=== PATIENT | female | born 1965 | race Caucasian/White ===

== ENCOUNTER 2017-01-27 15:44 | Emergency (ER) | payer OTHER ==
[2017-01-27 15:58] VITALS: BP 107/66; PULSE 70; RESP 18; TEMP 99.5; O2SAT 99
--- NOTE | 2017-01-27 16:09 | ED PDOC ---
Lower Extremity Pain/Injury Time Seen by Provider: 01/27/17 16:05 Chief Complaint (Nursing): Lower Extremity Problem/Injury Chief Complaint (Provider): Left thigh pain History Per: Patient History/Exam Limitations: no limitations Onset/Duration Of Symptoms: Days Current Symptoms Are (Timing): Still Present Additional Complaint(s): Kaleb is a 51 y/o female [facility] who presents to the ED complaining of pain to the left posterior thigh. She states that last Javon (01/23/17) while pulling a stretcher in the hospital, she felt a sharp pain and pull in the left upper posterior thigh. Patient reports having pain since then. She has been taking Motrin and Aleve with minimal pain relief. Her last dose of Aleve was at 4AM. Patient was seen at [facility] and was told to come to ED for further eval. PMD: none Past Medical History Reviewed: Historical Data, Nursing Documentation, Vital Signs Vital Signs: Last Vital Signs Temp 99.5 F 01/27/17 15:55 Pulse 70 01/27/17 15:55 Resp 18 01/27/17 15:55 BP 107/66 01/27/17 15:55 Pulse Ox 99 01/27/17 15:55 - Medical History PMH: No Chronic Diseases - Surgical History Surgical History: (x 2) - Family History Family History: States: No Known Family Hx - Living Arrangements Living Arrangements: With Family - Social History Current smoker - smoking cessation education provided: No Alcohol: None Drugs: Denies - Home Medications Home Medications: Ambulatory Orders Medication Instructions Recorded Cyclobenzaprine [Cyclobenzaprine 10 mg PO TID PRN #20 tab 01/27/17 HCl] Lidocaine 5% [Lidoderm] 1 ea TD DAILY #30 patch 01/27/17 Naproxen [Naprosyn] 500 mg PO BID #20 tab 01/27/17 traMADol [Ultram] 50 mg PO TID PRN #15 tab 01/27/17 - Allergies Allergies/Adverse Reactions: Allergies Allergy/AdvReac Type Severity Reaction Status Date / Time amoxicillin Allergy DIARRHEA Verified 01/27/17 15:55 Wells Criteria for PE - Wells Criteria for Pulmonary Embolism Clinical Signs and Symptoms of DVT: No P.E is #1 Diagnosis, or Equally Likely: No Heart Rate >100: No Immobilization at least 3 days;Surgery previous 4 weeks: No Previous, objectively diagnosed PE or DVT: No Hemoptysis: No Malignancy w/treatment within 6 months, or palliative: No Total Score: 0 Review of Systems ROS Statement: Except As Marked, All Systems Reviewed And Found Negative Musculoskeletal: Positive for: Leg Pain (left posterior thigh pain) Neurological: Negative for: Weakness, Numbness Physical Exam - Reviewed Nursing Documentation Reviewed: Yes Vital Signs Reviewed: Yes - Physical Exam Appears: Positive for: Non-toxic, No Acute Distress Head Exam: Positive for: ATRAUMATIC, NORMAL INSPECTION, NORMOCEPHALIC Skin: Positive for: Normal Color. Negative for: Rash Eye Exam: Positive for: Normal appearance Extremity: Positive for: Tenderness (and muscular spasm to the left hamstring region), Other (full rom left leg with pain). Negative for: Deformity Neurologic/Psych: Positive for: Alert, Oriented, Gait (antalgic due to left leg pain) - ECG O2 Sat by Pulse Oximetry: 99 (RA) Pulse Ox Interpretation: Normal Medical Decision Making Medical Decision Making: Time: 16:30 Clinical Impression: Left hamstring strain Toradol IM offered but this was declined by patient. Patient is medically stable for discharge. Given prescriptions for Naproxen, Flexeril, Tramadol, and Lidoderm patches for pain management. Counseling was provided and all questions were answered regarding diagnosis and need for follow up with employee health. There is agreement to discharge plan. Return if symptoms persist or worsen. Scribe Attestation: Documented by Elizabet Posada, acting as a scribe for Valencia Price PA-C Provider Scribe Attestation: All medical record entries made by the Scribe were at my direction and personally dictated by me. I have reviewed the chart and agree that the record accurately reflects my personal performance of the history, physical exam, medical decision making, and the department course for this patient. I have also personally directed, reviewed, and agree with the discharge instructions and disposition. Disposition - Clinical Impression Clinical Impression: Hamstring muscle strain - Patient ED Disposition Is Patient to be Admitted: No Counseled Patient/Family Regarding: Diagnosis, Need For Followup, Rx Given - Disposition Referrals: [facility] [Outside] Disposition: Routine/Home Disposition Time: 16:49 Condition: STABLE Additional Instructions: Take prescription medications as directed. Follow up this coming Thursday with employee health. Prescriptions: Cyclobenzaprine [Cyclobenzaprine HCl] 10 mg PO TID PRN #20 tab PRN Reason: Muscle Spasm Lidocaine 5% [Lidoderm] 1 ea TD DAILY #30 patch Naproxen [Naprosyn] 500 mg PO BID #20 tab traMADol [Ultram] 50 mg PO TID PRN #15 tab PRN Reason: Pain, Severe (8-10) Instructions: Hamstring Injury (ED), Leg Pain (ED) Forms: [facility] (Spanish), [facility] ED School/Work Excuse
== END 2017-01-27 18:30 | disposition home or self-care (01) ==
LOC: H.ER 15:44
DX: S76.312A Strain of muscle, fascia and tendon of the posterior muscle group at thigh level, left thigh, initial encounter (principal); X50.9XXA Other and unspecified overexertion or strenuous movements or postures, initial encounter; Y92.232 Corridor of hospital as the place of occurrence of the external cause; Y99.0 Civilian activity done for income or pay